=== PATIENT | male | born 1955 | race Caucasian/White ===

== ENCOUNTER → 2016-07-06 | Outpatient (CLI) | payer OTHER ==
[~2016-07-06] MED LIST: AMIODARONE PO; COQ-10100 MG PO; CRESTOR10 MG PO; DILTIAZEM 24HR180 M1 PO; ECOTRIN325 MG PO; FISH OIL 1,0001 CA2 PO; HYDROCODON-ACE1 EAC9 PO; LANTUS SOLOSTAR3 ML SQ; LASIX20 MG PO; LISINOPRIL20 MG PO; METFORMIN HCL500 M1 PO; MULTI VITAMIN1 EACH PO; NASONEX17 GM; NOVOLIN R100 UNITS/ PO; PANTOPRAZOLE SO40 MG PO; PHENERGAN25 MG PO; POLY IRON PO; SENNA S TABLET1 TAB PO; VITAMIN C500 M1 PO; ZINC50 M1 PO; [UNRECOGNIZED DRUG - OTHER] PO
[2016-07-06 14:47] LABS: HEMATOCRIT 41.5 % (38.0-50.0); HEMOGLOBIN 13.8 gm/dL (13.0-16.0); MEAN CELL VOLUME 96.8 FL (83-96); MEAN CORPUSCULAR HEMOGLOBIN 32.2 PG (28-34); MEAN CORPUSCULAR HGB CONC 33.2 g/dL (30-36); MEAN PLATELET VOLUME 9.9 FL (6.5-11.5); RED BLOOD COUNT 4.28 X10e (3.90-5.60); RED CELL DISTRIBUTION WIDTH 13.6 % (11.0-15.5); WHITE BLOOD COUNT 5.8 X10e3 (4.0-10.5)
[2016-07-06 15:12] LABS: ALBUMIN SERUM 4.1 g/dL (3.5-5.0); BILIRUBIN,TOTAL 0.6 mg/dL (0.2-2.0); BUN/CREATININE RATIO 20.83; CALCIUM SERUM 9.2 mg/dL (8.4-10.2); CREATININE SERUM 1.2 mg/dL (0.6-1.4); GLOM FILT RATE Estimated 64.4 mL/min (>60); POTASSIUM 4.5 mmol/L (3.5-5.1); PROTEIN TOTAL SERUM 7.2 g/dL (6.0-8.3)
== END | disposition home or self-care (01) ==
LOC: CLAB 13:52
PROVIDERS: Specialist
DX: Z85.038 Personal history of other malignant neoplasm of large intestine (principal)
CPT/HCPCS: 36415; 80053; 82378; 85027